=== PATIENT | male | born 1985 | race Two or more races ===

== ENCOUNTER 2018-07-25 21:49 | Emergency (ER) | payer SELFPAY ==
[~2018-07-25] VITALS: Ht 180.3 cm; Wt 81.2 kg
--- NOTE | 2018-07-25 21:58 | Emergency Room Report ---
History of Present Illness General Chief Complaint: Behavioral Complaint Source: Patient (Russel Chan DO) Present Illness HPI Patient presents by police department on a 5150 hold for possible attempt to hurt himself Patient at this time reports that his ex-girlfriend had reported and unchewed statement and he is not sure why he is here He reports that he had taken aspirin that was prescribed to him and drink some wine and was sleeping when he was picked up and brought to the emergency room Denies any homicidal or suicidal thoughts denies any chest pain or shortness of breath denies any back or flank pain Denies any abdominal pain (ErnestoRussel elliott DO) Allergies: Coded Allergies: No Known Allergies (Unverified , 07/25/18) Patient History Past Medical History: see triage record Pertinent Family History: none Reviewed Nursing Documentation: PMH: Agreed; PSxH: Agreed (Russel Chan DO) Nursing Documentation-PMH Past Medical History: No Stated History (ErnestoRussel elliott DO) Review of Systems All Other Systems: negative except mentioned in HPI (NakitaRussel yee ) Physical Exam Vital Signs Date Time Temp Pulse Resp B/P (MAP) Pulse Ox O2 Delivery O2 Flow Rate FiO2 07/25/18 21:43 97.9 99 16 140/84 95 Room Air Sp02 EP Interpretation: reviewed, normal General Appearance: well appearing, no apparent distress Head: normocephalic, atraumatic Eyes: bilateral eye PERRL, bilateral eye EOMI ENT: hearing grossly normal, normal pharynx, TMs + canals normal, uvula midline Neck: full range of motion, supple, no meningismus, no bony tend Respiratory: lungs clear, normal breath sounds, no rhonchi, no respiratory distress, no retraction, no accessory muscle use Cardiovascular #1: normal peripheral pulses, regular rate, rhythm, no edema, no gallop, no JVD, no murmur Gastrointestinal: normal bowel sounds, non tender, soft, no mass, no organomegaly, non-distended, no guarding, no hernia, no pulsatile mass, no rebound Genitourinary: no CVA tenderness Musculoskeletal: normal inspection Neurologic: oriented x3, responsive, clinical nursing instructor III-XII nml as tested, motor strength/ tone normal, sensory intact Psychiatric: anxious - Mildly anxious denies any suicidal thoughts Skin: normal color, no rash, warm/dry, palpation normal Lymphatic: normal inspection, no adenopathy (Russel Chan DO) Medical Decision Making Diagnostic Impression: Primary Impression: Alcohol abuse ER Course Patient presents on a 5150 Blood work is initiated and the patient is further medically cleared Patient will require psychiatric evaluation for further disposition However at this time continues to deny any homicidal or suicidal thoughts Labs Test 07/26/18 00:05 White Blood Count 5.4 K/UL (4.8-10.8) Red Blood Count 4.95 M/UL (4.70-6.10) Hemoglobin 15.4 G/DL (14.2-18.0) Hematocrit 43.1 % (42.0-52.0) Mean Corpuscular Volume 87 FL (80-99) Mean Corpuscular Hemoglobin 31.1 PG (27.0-31.0) Mean Corpuscular Hemoglobin Concent 35.7 G/DL (32.0-36.0) Red Cell Distribution Width 11.1 % (11.6-14.8) Platelet Count 242 K/UL (150-450) Mean Platelet Volume 7.6 FL (6.5-10.1) Neutrophils (%) (Auto) 51.7 % (45.0-75.0) Lymphocytes (%) (Auto) 38.3 % (20.0-45.0) Monocytes (%) (Auto) 8.9 % (1.0-10.0) Eosinophils (%) (Auto) 0.5 % (0.0-3.0) Basophils (%) (Auto) 0.7 % (0.0-2.0) Sodium Level 144 MMOL/L (136-145) Potassium Level 4.2 MMOL/L (3.5-5.1) Chloride Level 105 MMOL/L (98-107) Carbon Dioxide Level 25 MMOL/L (21-32) Anion Gap 14 mmol/L (5-15) Blood Urea Nitrogen 11 mg/dL (7-18) Creatinine 1.2 MG/DL (0.55-1.30) Estimat Glomerular Filtration Rate > 60 mL/min (>60) Glucose Level 90 MG/DL (74-106) Calcium Level 8.8 MG/DL (8.5-10.1) Total Bilirubin 0.5 MG/DL (0.2-1.0) Aspartate Amino Transf (AST/SGOT) 43 U/L (15-37) Alanine Aminotransferase (ALT/SGPT) 49 U/L (12-78) Alkaline Phosphatase 79 U/L (46-116) Total Protein 7.8 G/DL (6.4-8.2) Albumin 3.8 G/DL (3.4-5.0) Globulin 4.0 g/dL Albumin/Globulin Ratio 0.9 (1.0-2.7) Salicylates Level 0.9 ug/mL (2.8-20) Urine Opiates Screen Negative (NEGATIVE) Acetaminophen Level < 2 MCG/ML (10-30) Urine Barbiturates Screen Negative (NEGATIVE) Phencyclidine (PCP) Screen Negative (NEGATIVE) Urine Amphetamines Screen Negative (NEGATIVE) Urine Benzodiazepines Screen Negative (NEGATIVE) Urine Cocaine Screen Negative (NEGATIVE) Urine Marijuana (THC) Screen Negative (NEGATIVE) Serum Alcohol 236 mg/dL (Russel Chan DO) ER Course The patient was seen by Dr. Paula. Patient denies any suicidal thoughts. The he denies any medication overdose. The patient the was felt to be stable for discharge. The patient's hold was released by . Patient will be had discharged home He is to follow-up with Dr. Paula. (Alfonso Palomo MD) Last Vital Signs Date Time Temp Pulse Resp B/P (MAP) Pulse Ox O2 Delivery O2 Flow Rate FiO2 07/25/18 21:43 97.9 99 16 140/84 95 Room Air Status: improved (Russel Chan DO) Status: improved (Alfonso Palomo MD) Disposition: HOME, SELF-CARE Condition: Stable Scripts No Active Prescriptions or Reported Meds Russel Chan DO Jul 25, 2018 21:58 Alfonso Palomo MD Jul 26, 2018 12:00
[2018-07-25 23:00] VITALS: BP 134/81
[2018-07-26 00:26] LABS: BASOPHILS % (AUTO) 0.7 % (0.0-2.0); EOSINOPHILS % (AUTO) 0.5 % (0.0-3.0); HEMATOCRIT 43.1 % (42.0-52.0); HEMOGLOBIN 15.4 G/DL (14.2-18.0); LYMPHOCYTES % (AUTO) 38.3 % (20.0-45.0); MEAN CORPUSCULAR VOLUME 87 FL (80-99); MONOCYTES % (AUTO) 8.9 % (1.0-10.0); NEUTROPHILS % (AUTO) 51.7 % (45.0-75.0); PLATELET COUNT 242 K/UL (150-450); RED BLOOD COUNT 4.95 M/UL (4.70-6.10); RED CELL DISTRIBUTION WIDTH 11.1 % (11.6-14.8); WHITE BLOOD COUNT 5.4 K/UL (4.8-10.8)
[2018-07-26 00:44] LABS: ANION GAP 14 mmol/L (5-15); BLOOD UREA NITROGEN 11 mg/dL (7-18); CALCIUM 8.8 MG/DL (8.5-10.1); CARBON DIOXIDE 25 MMOL/L (21-32); CHLORIDE 105 MMOL/L (98-107); CREATININE 1.2 MG/DL (0.55-1.30); POTASSIUM 4.2 MMOL/L (3.5-5.1); SODIUM 144 MMOL/L (136-145)
[2018-07-26 00:49] LABS: ALANINE AMINOTRANSFERASE 49 U/L (12-78); ALBUMIN 3.8 G/DL (3.4-5.0); ALBUMIN/GLOBULIN RATIO 0.9 (1.0-2.7); ALKALINE PHOSPHATASE 79 U/L (46-116); ASPARTATE AMINO TRANSFERASE 43 U/L (15-37); BILIRUBIN,TOTAL 0.5 MG/DL (0.2-1.0)
[2018-07-26 01:00] VITALS: BP 129/76
[2018-07-26 07:49] VITALS: BP 105/72
[2018-07-26 09:55] VITALS: BP 112/68
--- NOTE | 2018-07-26 10:40 | Consultation ---
History of Present Illness General Chief Complaint: Behavioral Complaint Present Illness HPI atient presents by police department on a 5150 hold for possible attempt to hurt himself Patient at this time reports that his ex-girlfriend had reported and unchewed statement and he is not sure why he is here He reports that he had taken aspirin that was prescribed to him and drink some wine and was sleeping the pt denied si i spoke with his father at length. the family agreed for the pt to be discharged. Allergies: Coded Allergies: No Known Allergies (Unverified , 07/25/18) Medication History No Active Prescriptions or Reported Meds Patient History History Provided By: Patient, Family Member, PMD Healthcare decision maker Resuscitation status Advanced Directive on File Past Medical/Surgical History Past Medical/Surgical History: (1) Alcohol abuse Review of Systems Psychiatric: Reports: prior hx, anxiety, depressed feelings, emotional problems Physical Exam General Appearance: no apparent distress, alert Neurologic: oriented x 3, responsive, depressed affect Last 24 Hour Vital Signs Date Time Temp Pulse Resp B/P (MAP) Pulse Ox O2 Delivery O2 Flow Rate FiO2 07/26/18 09:55 98.0 78 19 112/68 99 Room Air 07/26/18 07:49 97.9 82 18 105/72 100 Room Air 07/26/18 01:00 98.3 81 16 129/76 99 Room Air 07/25/18 23:00 98.3 86 16 134/81 97 Room Air 07/25/18 22:00 99 16 Room Air 07/25/18 21:43 97.9 99 16 140/84 95 Room Air Laboratory Tests Test 07/26/18 00:05 White Blood Count 5.4 K/UL (4.8-10.8) Red Blood Count 4.95 M/UL (4.70-6.10) Hemoglobin 15.4 G/DL (14.2-18.0) Hematocrit 43.1 % (42.0-52.0) Mean Corpuscular Volume 87 FL (80-99) Mean Corpuscular Hemoglobin 31.1 PG (27.0-31.0) H Mean Corpuscular Hemoglobin Concent 35.7 G/DL (32.0-36.0) Red Cell Distribution Width 11.1 % (11.6-14.8) L Platelet Count 242 K/UL (150-450) Mean Platelet Volume 7.6 FL (6.5-10.1) Neutrophils (%) (Auto) 51.7 % (45.0-75.0) Lymphocytes (%) (Auto) 38.3 % (20.0-45.0) Monocytes (%) (Auto) 8.9 % (1.0-10.0) Eosinophils (%) (Auto) 0.5 % (0.0-3.0) Basophils (%) (Auto) 0.7 % (0.0-2.0) Sodium Level 144 MMOL/L (136-145) Potassium Level 4.2 MMOL/L (3.5-5.1) Chloride Level 105 MMOL/L (98-107) Carbon Dioxide Level 25 MMOL/L (21-32) Anion Gap 14 mmol/L (5-15) Blood Urea Nitrogen 11 mg/dL (7-18) Creatinine 1.2 MG/DL (0.55-1.30) Estimat Glomerular Filtration Rate > 60 mL/min (>60) Glucose Level 90 MG/DL (74-106) Calcium Level 8.8 MG/DL (8.5-10.1) Total Bilirubin 0.5 MG/DL (0.2-1.0) Aspartate Amino Transf (AST/SGOT) 43 U/L (15-37) H Alanine Aminotransferase (ALT/SGPT) 49 U/L (12-78) Alkaline Phosphatase 79 U/L (46-116) Total Protein 7.8 G/DL (6.4-8.2) Albumin 3.8 G/DL (3.4-5.0) Globulin 4.0 g/dL Albumin/Globulin Ratio 0.9 (1.0-2.7) L Salicylates Level 0.9 ug/mL (2.8-20) L Urine Opiates Screen Negative (NEGATIVE) Acetaminophen Level < 2 MCG/ML (10-30) L Urine Barbiturates Screen Negative (NEGATIVE) Phencyclidine (PCP) Screen Negative (NEGATIVE) Urine Amphetamines Screen Negative (NEGATIVE) Urine Benzodiazepines Screen Negative (NEGATIVE) Urine Cocaine Screen Negative (NEGATIVE) Urine Marijuana (THC) Screen Negative (NEGATIVE) Serum Alcohol 236 mg/dL Height (Feet): 5 Height (Inches): 11.00 Weight (Pounds): 179 Assessment/Plan Problem List: (1) Alcohol abuse ICD Codes: F10.10 - Alcohol abuse, uncomplicated SNOMED: 70188660 Assessment/Plan Mdd alcohol dependence Anxiety -Remeron 15mg qhs -Prozac 20mg qam -the pt is at imminent dts/dto -dc 5150 -dw parents -script was given -pt f/u with psychiatrist Benito Paula MD Jul 26, 2018 10:40
[2018-07-26 11:48] VITALS: BP 115/72
== END 2018-07-26 11:50 | disposition home or self-care (01) ==
LOC: EDBD 21:49 → EMR 22:22
DX: F10.20 Alcohol dependence, uncomplicated (principal); F32.9 Major depressive disorder, single episode, unspecified; F41.9 Anxiety disorder, unspecified
CPT/HCPCS: 36415; 80053; 80307; 85025; 99285; G0480; 80329